=== PATIENT | male | born 1985 | race Caucasian/White ===

== ENCOUNTER 2020-07-04 02:25 | Outpatient (CLI) | payer SELFPAY ==
[2020-07-04 16:44] LABS: Abs Immature Grans 0.03 10^3/uL (0.0-0.06); Absolute Basophil Count 0.07 10^3/uL (0.0-0.2); Absolute Eosinophil Count 0.23 10^3/uL (0.0-0.7); Absolute Lymphocyte Count 2.59 10^3/uL (1.2-3.4); Absolute Monocyte Count 0.73 10^3/uL (0.1-0.8); Basophils % 0.7; Eosinophils % 2.2; HCT 44.9 % (40.0-50.0); Immature Grans % 0.3; Lymphocytes % 24.3; MCH 27.5 pg (27.0-33.0); MCHC 33.4 % (32.0-36.0); MCV 82.2 fL (80-95); MPV 9.3 fL (8.0-11.0); Monocytes % 6.9; Neutrophils % 65.6; Nucleated RBC 0 %; Platelet Count 253 10^3/uL (130-400); RBC 5.46 10^6/uL (4.36-5.78); RDW 12.9 % (11.8-14.1); RDW-SD 38.6 fL; WBC 10.65 10^3/uL (4.4-10.8)
[2020-07-04 17:14] LABS: *AMPHETAMINES SCREEN URINE Negative (Negative); *BARBITURATES SCREEN URINE Negative (Negative); *BENZODIAZEPINES SCREEN URINE Negative (Negative); Cannabinoids THC Positive (Negative); Cocaine Screen,Urine Negative (Negative); METHADONE URINE SCREEN Negative (Negative); OPIATES URINE SCREEN Negative (Negative)
[2020-07-04 17:21] LABS: Hemoglobin A1C 5.2 % (<5.7)
[2020-07-04 17:31] LABS: Tricyclic Antidepressants Negative (Negative)
[2020-07-04 17:49] LABS: Lithium < 0.2 mmol/l (0.6-1.2)
[2020-07-04 18:07] LABS: ALT 26 U/L (16-63); AST 6 U/L (15-37); Albumin 4.1 g/dL (3.4-5.0); Alkaline Phosphatase 72 U/L (46-116); Anion Gap 10.7 mmol/L (3-11); BUN 11 mg/dL (7-18); Bilirubin, Total 0.9 mg/dL (0.2-1.0); CO2 25.3 mmol/L (21.0-32.0); Calcium 8.8 mg/dL (8.5-10.1); Calculated LDL 100 mg/dL (<100); Chloride 104 mmol/L (98-107); Cholesterol 153 mg/dL (<200); Glucose 90 mg/dL (74-106); HDL Cholesterol 28 mg/dL (40-60); LDH 204 U/L (85-227); Potassium 3.7 mmol/L (3.5-5.1); Sodium 140 mmol/L (136-145); TSH 2.23 uIU/mL (0.36-3.74); Total Protein 7.1 g/dL (6.4-8.2); Triglyceride 129 mg/dL (<150)
[2020-07-04 18:23] LABS: FREE T4 1.14 ng/dL (0.76-1.46)
[2020-07-04 21:03] LABS: T3,Free 3.9 pg/mL (2.8-5.3)
== END 2020-07-04 02:26 | disposition home or self-care (01) ==
LOC: LBO 02:25
DX: Z79.899 Other long term (current) drug therapy (principal); Z51.81 Encounter for therapeutic drug level monitoring
CPT/HCPCS: 36415; 80053; 80061; 80307; 80178; 83036; 83615; 84439; 84443; 84481; 85025